=== PATIENT | female | born 2000 | race Caucasian/White ===

== ENCOUNTER 2018-12-31 05:29 | Inpatient (IN) | payer BC, SELFPAY ==
[2018-12-30 12:07] LABS: RPR Titer ND
[2018-12-30 12:13] LABS: Absolute Lymphocytes (CBC) 1.6 K/uL (0.7-4.9); Absolute Monocytes 0.4 K/uL (0.1-1.3); Absolute Neutrophil 5.4 K/uL (1.8-8.0); Basophils % 0.5 % (0-1.3); Eosinophils % 1.2 % (0-4.4); Hematocrit 34.1 % (36.0-45.0); Lymphocytes % 21.2 % (15.3-44.8); MPV 9.1 fL (7.6-11.3); Monocytes % 5.4 % (3.3-12.3); RBC Red Blood Cell Count 4.41 M/uL (3.86-4.86)
[2018-12-30 21:22] LABS: RPR (Rapid Plasma Reagin) NON-REACT (NON-REACT)
--- OUTSIDE RECORDS SUMMARY | 2018-12-31 05:31 | XMS REPORT ---
:2000 [facility] Address [address] [place] [address] Dr. Siu [address] [place] [id number] Care Team Providers Name Role Phone Unavailable Unavailable Unavailable Problems This patient has no known problems. Allergies, Adverse Reactions, Alerts This patient has no known allergies or adverse reactions. Medications This patient has no known medications.
[2018-12-31] MEDS ORDERED: Ringers Lactate 1,000 ML IV PRN (05:47)
[2018-12-31] MEDS ORDERED: NA CIT/CITRIC AC 30 ML ORAL UDC PO ONE (05:51)
[2018-12-31] MEDS ORDERED: CEFAZOLIN 1GM (PREMIX IV) 1 GM/50 ML BAG IV SCH (06:00)
[2018-12-31] MEDS ORDERED: Ringers Lactate 1,000 ML IV SCH (06:00)
[2018-12-31] MEDS ORDERED: METOCLOPRAMIDE 10 MG/2mL INJ IV SCH (06:00)
[2018-12-31] MEDS ORDERED: CEFAZOLIN/SWI 1gm 1 GM/10 ML SYR ONE (06:29)
[2018-12-31 06:35] VITALS: BMI 23.4
[2018-12-31] MEDS ORDERED: MORPHINE SULFATE/PF 1 MG/ML (10 ML AMP) ONE (07:05)
[2018-12-31] MEDS ORDERED: OXYTOCIN 10 UNIT/ML ML IV ONE ×2 (07:06→08:26)
[2018-12-31] MEDS ORDERED: EPHEDRINE SULF 50 MG/ML VIAL ONE (07:06)
[2018-12-31] MEDS ORDERED: NS 0.9% VIAL 10 ML ONE (07:06)
[2018-12-31] MEDS ORDERED: ONDANSETRON 4 MG/2 ML VIAL ONE ×2 (07:08→09:55)
[2018-12-31] MEDS ORDERED: METHYLERGONOVINE 0.2MG/ML AMP IM ONE (07:14)
[2018-12-31] MEDS ORDERED: CARBOPROST TROME 250 MCG/ML IM ONE (07:14)
--- NOTE | 2018-12-31 08:15 | PREOPHP ---
Date of Admission: 12/31/2018 Subjective: Ms. Sinclair is a 18-year-old thin female, 3, para 1-0-1-1 at 39 weeks [facility]. She is admitted for repeat section secondary to term , prior sec tion with cephalopelvic disproportion. She has been followed by me since transfer of care early in t he with issues of prior with anemia. Past Medical History: Please see record. Family History: Please see record. Review of Systems: She reports no recent cough, cold, fever, or chills. No recent nausea, vomiting. She denies any franky ast lumps or knots. She denies any bowel or bladder issues. has been active. Physical Examination: General: Reveals a petite female, in no apparent distress. Neck: Supple without adenopathy or thyromegaly. Lungs: Clear. Cardiac Exam: Regular rate and rhythm without murmurs. Breasts: Not examined. Abdomen: Estimated weight of approximately 6+ pounds. Pelvic not performed. Extremities: No cyanosis, clubbing, or edema. heart tones well heard with Doppler. vertex still above the pubic bone. Impression: A 39+ week , prior sections, probable cephalopelvic disproportion. Plan: The patient will undergo repeat section. Risks and benefits are discussed. She has signed operative permit in my presence. MARYAM/DOMINIC Voice ID: [id number]
[2018-12-31] MEDS ORDERED: Oxycodone HCl/Acetaminophen 1 TAB TAB PO PRN (08:47)
[2018-12-31] MEDS ORDERED: METHYLERGONOVINE 0.2 MG TAB PO PRN (08:47)
[2018-12-31] MEDS ORDERED: ONDANSETRON 4 MG (ODT) TAB PO PRN (08:47)
[2018-12-31] MEDS ORDERED: KETOROLAC 30 MG/ML INJ IV PRN (08:47)
[2018-12-31] MEDS ORDERED: METHYLERGONOVINE 0.2MG/ML AMP IM PRN (08:47)
[2018-12-31] MEDS ORDERED: CARBOPROST TROME 250 MCG/ML IM PRN (08:47)
[2018-12-31] MEDS ORDERED: FAMOTIDINE 20 MG/2 ML VIAL IV SCH (09:00)
[2018-12-31] MEDS ORDERED: PROMETHAZINE 25 MG/ML VIAL IV PRN (11:38)
[2018-12-31] MEDS ORDERED: METOCLOPRAMIDE 10 MG/2mL INJ ONE (11:46)
--- NOTE | 2018-12-31 12:24 | P.BOP ---
Preoperative diagnosis: 39 wk , prior Postoperative diagnosis: viable female Primary procedure: Repeat Air Brush Operator: Davi Troy Estimated blood loss: Less than 800ml Specimen: placenta Anesthesia: Spinal Complications: None Drain(s): Urinary catheter Transferred to: Other (277) Condition: Good
[2018-12-31] MEDS: OXYTOCIN/LR 20 UNIT/1,000 ML BAG IV SCH ×2 (14:50→20:40)
[2018-12-31] MEDS ORDERED: Ringers Lactate 1,000 ML IV ONE (17:17)
--- NOTE | 2018-12-31 23:09 | OP ---
Surgeon: Bunny Carroll MD Preoperative Diagnoses: A 39-week , prior section, cephalopelvic disproportion. Procedures: Spinal block anesthesia, repeat section, delivery of viable female . Postoperative Diagnoses: A 39-week , prior section, cephalopelvic disproportion. Description Of Procedure: After a satisfactory level of spinal block anesthesia and the patient had received 1 g of Ancef for antibiotic prophylaxis, she was prepped and draped in the usual fashion for abdominal surgery. A Pfannenstiel skin incision was made and excision of the patient's prior keloid incision was performed. The incision was carried down to the fascia. The fascia was incised with a combination of sharp and blunt dissection. This was from the underlying rectus muscles. These were divided in the midline. The peritoneum identified and incised. Vesicouterine peritoneum developed. A low-transverse uterine incision was made. A 6-pound 14-ounce female infant was deliver ed in vertex presentation. The cord was clamped, cut, and the infant placed in the warmer. Cord blo od was obtained. The placenta was manually removed. The uterus was then exteriorized. The cervix w as dilated from above with a ring clamp, which was passed from the operative field. Uterine incision was closed in 2 layers utilizing 0 Vicryl suture in a running nonlocking fashion, second layer used to imbricate the first. Vesicouterine peritoneum was approximated with a running suture of 3-0 Vicry l. The uterus was returned to the peritoneal cavity, which was cleaned of amniotic fluid, debris, an d blood clot. The peritoneum was closed by approximating the rectus muscles in the midline with simp le sutures of 0 Vicryl. Fascia was closed with running sutures of #1 Vicryl to the midline from eith er margin. Subcutaneous tissue was approximated with simple sutures of 3-0 Vicryl, subdermal suture of 3-0 Vicryl, subcuticular suture of 4-0 Monocryl. Estimated total blood loss was less than 800 cc. The patient was taken to the recovery room in satisfactory condition with Goode catheter in place w ith SCDs in place and sponge and needle counts correct x2. C2 Tactical Analysis Technician Surgeon: Dr. Troy. Anesthesia: Gisela Diggs and Dr. Jorge Christian. MPG/MODL Voice ID: [id number] Report ID: [id number]
[2019-01-01] MEDS: OXYTOCIN/LR 20 UNIT/1,000 ML BAG IV SCH (05:00)
[2019-01-01 05:05] LABS: Absolute Lymphocytes (CBC) 1.6 K/uL (0.7-4.9); Absolute Monocytes 0.7 K/uL (0.1-1.3); Absolute Neutrophil 6.4 K/uL (1.8-8.0); Basophils % 0.4 % (0-1.3); Eosinophils % 1.6 % (0-4.4); Lymphocytes % 18.4 % (15.3-44.8); MPV 9.6 fL (7.6-11.3); Monocytes % 7.9 % (3.3-12.3); RBC Red Blood Cell Count 3.76 M/uL (3.86-4.86)
--- NOTE | 2019-01-01 07:35 | P.PN ---
Date of Service: 01/01/19 No complaints O-Afeb, vs stable, bandage dry, abdomen soft, not distended. A-Satisfactory P-ambulate, advance diet, remove IV and dennison
[2019-01-01] MEDS ORDERED: IBUPROFEN 400 MG TAB PO PRN (15:40)
[2019-01-01] MEDS: IBUPROFEN 200 MG TAB PO PRN ×2 (15:45→21:32)
[2019-01-01] MEDS ORDERED: IBUPROFEN 200 MG TAB PO ONE (15:57)
[2019-01-02] MEDS: IBUPROFEN 200 MG TAB PO PRN (04:10)
[2019-01-02 08:48] VITALS: BP 95/54; TEMP 98.3
[2019-01-03 03:35] LABS: HBsAG Nonreactive (Nonreactive)
--- NOTE | 2019-01-03 08:18 | DS ---
Date of Discharge: 01/02/2019 Final Hospital Discharge Diagnoses: 39 week , delivered by repeat section, deliver y of viable female . Complications: None. Procedures: Spinal block anesthesia, repeat section, delivery of viable female infant. Hospital Course: The patient is a 18-year-old female, 2, para 1-0-0-1 at 39+ weeks gestation, admitted for repeat section secondary to prior section and cephalopelvi c disproportion. She was delivered of a 6-pound 14-ounce female infant by repeat section wi th spinal block anesthesia. She was dismissed on the second postoperative day, ambulatory, on a maxime ct diet with routine post section activity restrictions. Lab work included an admission hem oglobin and hematocrit of 11.6 and 34.1, dismissal of 9.8 and 29.0. Because of Rh-negative blood typ e and cord blood type was positive, she was given RhoGAM. She was dismissed with prescription for Ty lenol No. 3, #15. To be seen back in my office in 1 week with the usual post section activi ty restrictions. MARYAM/DOMINIC Voice ID: [id number] Report ID: [id number]
== END 2019-01-02 10:37 | disposition home or self-care (01) | DRG 788 ==
LOC: 2ND-WC 05:29
PROVIDERS: ADMIT Specialist; ATTEND Specialist
PROC: 3E0234Z Introduction of Serum, Toxoid and Vaccine into Muscle, Percutaneous Approach (ICD-10-PCS; 2018-12-31)
PROC: 10D00Z1 Extraction of Products of Conception, Low, Open Approach (ICD-10-PCS; principal; 2018-12-31 07:30)
DX: O33.9 Maternal care for disproportion, unspecified (principal); Z3A.39 39 weeks gestation of pregnancy; Z37.0 Single live birth
CPT/HCPCS: 36415; 85025; 85461; 86592; 86850; 86870; 86900; 86901; 87340; 88307; G0433; J0690; J2210; J2405; J2550; J2590; J2765; J2790

== ENCOUNTER → 2022-10-11 | Day surgery (SDC) | payer BC ==
--- NOTE | 2022-10-11 13:11 | RAD REPORT ---
EXAM DESCRIPTION: US - Puncture Aspiration Of Abcess - 10/11/2022 12:25 pm CLINICAL HISTORY: N63.11, N61.1 COMPARISON: No comparisons FINDINGS: Patient was referred for ultrasound-guided core biopsy versus abscess drainage right breas t. Informed consent was obtained and time-out was performed. The right breast was prepped and draped usu al sterile fashion. On pre-procedure examination, the breast was noted to be indurated, red and warm to touch. Following the administration of local anesthetic, a small skin incision was made approximate 9 o'cloc k position right breast. Needle puncture under ultrasound guidance was perform of a heterogenous khanh ection in the right breast, yielding thick pus-like material. Only a small amount of this material co uld be aspirate successfully due to the high level of viscosity. This sample material was sent to the microbiology lab. The patient tolerated procedure well. Findings were discussed with Dr. Donald. IMPRESSION: Right-sided breast findings are compatible with a large abscess, greatest along the righ t retroareolar and lateral aspect. Dr. Donald was notified.
[2022-10-11 15:38] LABS: Absolute Lymphocytes (CBC) 1.3 K/uL (0.7-4.9); Hematocrit 32.4 % (36.0-45.0); Lymphocytes % 11.7 % (15.3-44.8); MCV 77.3 fL (80-100); MPV 7.3 fL (7.6-11.3); Potassium 4.1 mmol/L (3.5-5.1); RBC Red Blood Cell Count 4.19 M/uL (3.86-4.86)
== END ==
LOC: DS 10:37
PROVIDERS: ATTEND Surgery
DX: N63.11 Unspecified lump in the right breast, upper outer quadrant (principal); N61.1 Abscess of the breast and nipple
CPT/HCPCS: 10160; 36415; 80048; 84703; 85025; 87070; 87075; 87205